=== PATIENT | male | born 1990 | race Caucasian/White ===

== ENCOUNTER 2017-12-02 22:07 | Emergency (ER) | payer BC ==
[2017-12-02] MEDS ORDERED: Sodium Chloride 0.9% 1,000 ML IV STA (22:48)
--- NOTE | 2017-12-02 22:55 | ED PDOC ---
Arrival/HPI - General Chief Complaint: Fever Time Seen by Provider: 12/02/17 22:23 Historian: Patient - History of Present Illness Narrative History of Present Illness (Text): 12/02/17 22:50 A 27 year old male, with no significant past medical history, presents to the emergency department complaining of low-grade fever, episodes of nausea and vomiting with diarrhea for the past day. Patient reports also experiencing occasional abdominal cramping. Patient denies any neck pain, back pain, chest pain, shortness of breath, any urinary symptoms, or any other complaints. No PMD Time/Duration: Other (all day) Symptom Onset: Sudden Symptom Course: Unchanged Past Medical History - Provider Review Nursing Documentation Reviewed: Yes - Cardiac Hx Hypertension: Yes - Psychiatric Hx Substance Use: No - Surgical History Hx Appendectomy: Yes - Anesthesia Hx Anesthesia: Yes Hx Anesthesia Reactions: No Hx Malignant Hyperthermia: No Family/Social History - Physician Review Nursing Documentation Reviewed: Yes Family/Social History: No Known Family HX Smoking Status: Never Smoked Hx Alcohol Use: Yes Frequency of alcohol use: Socially Hx Substance Use: No Allergies/Home Meds Allergies/Adverse Reactions: Allergies No Known Allergies Allergy (Verified 07/30/16 19:59) Review of Systems - Physician Review All systems were reviewed & negative as marked: Yes - Review of Systems Constitutional: Fevers (lowgrade) Respiratory: absent: SOB Cardiovascular: absent: Chest Pain Gastrointestinal: Abdominal Pain (occassional abdominal crampings), Diarrhea, Nausea, Vomiting Genitourinary Male: absent: Dysuria, Frequency, Hematuria, Urinary Output Changes Musculoskeletal: absent: Back Pain, Neck Pain Physical Exam Vital Signs Reviewed: Yes Vital Signs Temp Pulse Resp BP Pulse Ox 12/03/17 00:57 99.9 F H 85 19 121/70 100 12/02/17 22:12 102.4 F H 119 H 21 152/93 H 96 Temperature: Febrile Blood Pressure: Hypertensive Pulse: Regular Respiratory Rate: Normal Appearance: Positive for: Well-Appearing Pain Distress: None Mental Status: Positive for: Alert and Oriented X 3 - Systems Exam Head: Present: Atraumatic, Normocephalic Pupils: Present: PERRL Extroacular Muscles: Present: EOMI Conjunctiva: Present: Normal Mouth: Present: Moist Mucous Membranes Neck: Present: Normal Range of Motion, Other (neck is supple, no meningeal signs ) Respiratory/Chest: Present: Clear to Auscultation, Good Air Exchange. No: Respiratory Distress, Accessory Muscle Use Cardiovascular: Present: Regular Rate and Rhythm, Normal S1, S2. No: Murmurs Abdomen: Present: Normal Bowel Sounds. No: Tenderness, Distention, Peritoneal Signs Back: Present: Normal Inspection Upper Extremity: Present: Normal Inspection. No: Cyanosis, Edema Lower Extremity: Present: Normal Inspection. No: Edema Neurological: Present: GCS=15, CN II-XII Intact, Speech Normal Skin: Present: Warm, Dry, Normal Color. No: Rashes Psychiatric: Present: Alert, Oriented x 3, Normal Insight, Normal Concentration Medical Decision Making ED Course and Treatment: 12/02/17 22:53 Impression: 27 year old male with low-grade fever, episodes of nausea and vomiting with diarrhea, and occasional abdominal cramps. Physical examination is benign. Plan: -- Labs -- Motrin -- IV Fluids -- Zofran -- Rapid Flu Test -- Reassess and disposition Progress Notes: - Lab Interpretations Lab Results: 12/02/17 23:00 12/02/17 23:00 Lab Results 12/02/17 23:00: WBC 3.5 L, RBC 4.01, Hgb 12.0 L, Hct 36.1 L, MCV 90.0, MCH 29.9 , MCHC 33.2, RDW 12.4, Plt Count 186, MPV 10.2 12/02/17 23:00: Sodium 142, Potassium 3.8, Chloride 104, Carbon Dioxide 23, Anion Gap 20, BUN 14, Creatinine 1.0, Est GFR ( Amer) > 60, Est GFR (Non- Af Amer) > 60, Random Glucose 94, Calcium 10.0, Total Bilirubin 0.5, AST 26, ALT 50, Alkaline Phosphatase 50, Total Protein 7.9, Albumin 4.5, Globulin 3.4, Albumin/Globulin Ratio 1.3, Lipase 60 12/02/17 23:00: Influenza Typ A,B (EIA) Negative for flu a/b - Medication Orders Current Medication Orders: Discontinued Medications Sodium Chloride (Sodium Chloride 0.9%) 1,000 mls @ 999 mls/hr IV .Q1H1M STA Stop: 12/02/17 23:48 Last Admin: 12/02/17 22:56 Dose: 999 mls/hr eMAR Start Stop Document 12/02/17 22:56 OCS (Rec: 12/02/17 22:[address] [id number]) Intravenous Solution Start Date 12/02/17 Start Time 22:56 End Date 12/02/17 End time 23:57 Total Infusion Time 61 Ibuprofen (Motrin Tab) 600 mg PO STAT STA Stop: 12/02/17 22:48 Last Admin: 12/02/17 22:56 Dose: 600 mg MAR Pain/Vitals Document 12/02/17 22:56 OCS (Rec: 12/02/17 22:57 [id number]) Pain Reassessment Is This A Pain ReAssessment? Yes Sleep Is patient sleeping during reassessment? No Presence of Pain Presence of Pain Yes Ondansetron HCl (Zofran Inj) 4 mg IVP ONCE ONE Stop: 12/02/17 22:49 Last Admin: 12/02/17 22:56 Dose: 4 mg IVP Administration Document 12/02/17 22:56 OCS (Rec: 12/02/17 22:56 [id number]) Charges for Administration # of IVP Administrations 1 - Scribe Statement The provider has reviewed the documentation as recorded by the Cl Morris Provider Scribe Attestation: All medical record entries made by the Scribe were at my direction and personally dictated by me. I have reviewed the chart and agree that the record accurately reflects my personal performance of the history, physical exam, medical decision making, and the department course for this patient. I have also personally directed, reviewed, and agree with the discharge instructions and disposition. Disposition/Present on Arrival - Present on Arrival Any Indicators Present on Arrival: No History of DVT/PE: No History of Uncontrolled Diabetes: No Urinary Catheter: No History of Decub. Ulcer: No History Surgical Site Infection Following: None - Disposition Have Diagnosis and Disposition been Completed?: Yes Diagnosis: Gastroenteritis Disposition: HOME/ ROUTINE Disposition Time: :02 Patient Plan: Discharge Patient Problems: Current Active Problems Problem Status Onset Gastroenteritis Acute Condition: GOOD Discharge Instructions (ExitCare): Gastroenteritis (ED) Additional Instructions: Drink small amounts of liquids at a time/take meds as prescribed/follow up with your doctor this week Prescriptions: Ondansetron [Zofran Odt] 4 mg PO Q6 #12 odt Referrals: PCP,NO [Primary Care Provider] - Follow up with primary Forms: [employer] ([place])
[2017-12-02 23:37] LABS: ALB/GLOB RATIO 1.3 (1.1-1.8); ALBUMIN 4.5 g/dL (3.0-4.8); ALT/SGPT 50 U/L (7-56); AST/SGOT 26 U/L (17-59); BLOOD UREA NITROGEN 14 mg/dL (7-21); GFR AFRICAN-AMERICAN > 60; GFR NON-AFRICAN AMERICAN > 60; LIPASE 60 U/L (23-300)
[2017-12-03 01:00] VITALS: BP 121/70; PULSE 85; RESP 19; TEMP 99.9; O2SAT 100
[2017-12-03 01:21] LABS: MEAN CORPUSCULAR HEMOGLOBIN 29.9 pg (25.0-35.0); MEAN CORPUSCULAR HGB CONC 33.2 g/dl (31.0-37.0); MEAN PLATELET VOLUME 10.2 fl (7.0-11.0); RBC 4.01 10^6/uL (3.5-6.1); RED CELL DISTRIBUTION WIDTH 12.4 % (11.5-14.5); WHITE BLOOD COUNT 3.5 10^3/ul (4.5-11.0)
== END 2017-12-03 02:00 | disposition home or self-care (01) ==
LOC: ED 22:07
DX: K52.9 Noninfective gastroenteritis and colitis, unspecified (principal); I10 Essential (primary) hypertension
CPT/HCPCS: 80053; 83690; 85027; 87804; 96361; 96374; 99283; J2405; J7040